=== PATIENT | female | born 1930 | race Two or more races ===

== ENCOUNTER 2017-12-24 09:30 | Outpatient (CLI) | payer OTHER ==
[~2017-12-24 09:30] MED LIST: SYNTHROID50 MCG PO
== END 2017-12-24 09:37 | disposition home or self-care (01) ==
LOC: RAD 501 09:30
DX: M25.551 Pain in right hip (principal)

== ENCOUNTER 2019-01-15 20:18 | Emergency (ER) | payer OTHER ==
[~2019-01-15] VITALS: Ht 170.2 cm; Wt 72.1 kg
[2019-01-15] MEDS ORDERED: ATORVASTATIN CA10 MG (20:32)
[2019-01-15] MEDS ORDERED: ASPIR 8181 MG (20:32)
== END 2019-01-15 21:43 | disposition home or self-care (01) ==
LOC: ER 20:18
DX: S01.02XA Laceration with foreign body of scalp, initial encounter (principal); W45.8XXA Other foreign body or object entering through skin, initial encounter; Y93.89 Activity, other specified; Y92.018 Other place in single-family (private) house as the place of occurrence of the external cause; Y99.8 Other external cause status

== ENCOUNTER 2021-11-11 20:32 | Emergency (ER) | payer OTHER ==
[~2021-11-11] VITALS: Ht 167.6 cm; Wt 72.6 kg
[~2021-11-11 20:32] MED LIST changes: +ASPIR 8181 MG; +ATORVASTATIN CA10 MG
== END 2021-11-11 22:00 | disposition home or self-care (01) ==
LOC: ER 20:32
DX: S09.90XA Unspecified injury of head, initial encounter (principal); W18.11XA Fall from or off toilet without subsequent striking against object, initial encounter; Y93.9 Activity, unspecified; Y99.9 Unspecified external cause status